=== PATIENT | male | born 1960 | race Caucasian/White ===

== ENCOUNTER 2024-07-18 13:02 | Outpatient (AMB) | payer MEDICARE, SELFPAY ==
--- NOTE | 2024-07-18 13:05 | MHC.OFFVIS ---
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 He has recently moved to [facility] from [facility]. He said he has known history of hyperlipidemia since in his 20s, was diagnose in the setting of his father having premature coronary artery disease events in his late 30s. Subsequently was managed with medication initially with Mevacor with subsequently developed rhabdomyolysis. He was then switch to an alternative therapy but over time was then treated with atorvastatin with which he had a very good result although subsequently developed again elevated CK and was switch to an alternative therapy. Most recently he was then started on PCSK9 inhibitor therapy due to his intolerance to statin therapy with a low-dose atorvastatin therapy. This again the muscle related toxicity in his atorvastatin was drop in switch to Livalo with again elevated CPK level leading to discontinuation statin therapy and has been labeled statin intolerant due to muscle toxicity. He was then started on ezetimibe therapy with most lost lipid panel with LDL of 139 mg/dL. Patient has been able to tolerate PCSK9 inhibitor therapy without issues. Patient says that he has had coronary calcium score in the past which suggested underlying presence of coronary atherosclerosis with calcium score reported one of the prior notes at 396 done in 2019. He underwent a recent stress echocardiogram which at high workload was within normal limits. He maintains high level of exercise and has no symptoms of exertional chest pain or shortness of breath. He has been diagnose prior with breast cancer as well as prostate cancer. He complains of diffuse tendinitis like symptoms. He maintains his diet appropriately. He also exercises appropriately. [facility] Family History Father CAD (coronary artery disease) of bypass graft S/P quadruple vessel bypass Heart attack Social History Alcohol intake: former Patient Tobacco Use Status: Former Tobacco user Review of Systems Const Denies chills, Denies fatigue, Denies fever(s), Denies frequent falls, Denies weakness, Denies weight gain and Denies weight loss ENT Denies dizziness Card Denies chest pain, Denies leg edema, Denies lightheadedness, Denies palpitations, Denies dyspnea, Denies dyspnea on exertion and Denies orthopnea Resp Denies cough, Denies dyspnea and Denies dyspnea on exertion GI Denies bloating and Denies change in bowel habits Musc Denies muscle weakness, Denies numbness and Denies tingling Neuro Denies dizziness, Denies frequent falls, Denies numbness, Denies tingling and Denies weakness Endo Denies fatigue and Denies palpitations Physical Exam Vital Signs: Last Vital Signs Pulse 70 07/18/24 13:07 BP 110/62 07/18/24 13:07 BMI result Body Mass Index 24.1 Const General: cooperative, comfortable, no acute distress, well developed, alert, awake and well groomed Nutritional Appearance: well nourished and thin Orientation/consciousness: patient oriented x3 Limitations: no limitations HEENT Head: Yes normocephalic and Yes atraumatic Neck Neck: Yes trachea midline, Yes supple and Yes no JVD Carotids: no bruits Resp Effort & Inspection: normal respiratory effort Auscultation: clear to auscultation bilaterally Cardio Jugular venous distension: no JVD Rate: regular rate Rhythm: regular rhythm Heart sounds: S1 normal heart sound present, S2 normal heart sound present, no click, no gallops, Murmur heart sound present systolic early and no rubs Skin General skin exam: no rashes or lesions noted Neuro General: patient oriented x3 and no focal motor deficits Extrem General: Yes no clubbing, cyanosis or edema Psych Appearance: grossly normal Office Procedures EKG Details: EKG shows normal sinus rhythm with normal EKG at 70 beats per minute 60027-[id number], Complete Assessment & Plan Assessment & Plan (1) CAD (coronary artery disease): Code(s): I25.10 - Atherosclerotic heart disease of [place] coronary artery without angina pectoris Category: Medical Plan: Presence of coronary atherosclerosis based on coronary calcium score with a score of 396 in the past with recent stress echocardiogram within normal limits suggestive of nonobstructive disease. He remains asymptomatic and has high functional state. Recommend to continue maintain activity level as well as lifestyle modification with dietary modifications before. He needs more intense lipid modification and agree that his management should be change. He had best results with statin therapy in combination with PCSK9 inhibitor therapy although developed muscle toxicity with statin therapy and multiple occasions and therefore statin therapy is contraindicated him in him. I have suggested him to increase his Repatha to 420 mg monthly injection and follow-up lipid panel along with CRP in 3 months time on that therapy along with ezetimibe. If this does not lead to adequate response will consider adding bempedoic acid to his regimen with close follow-up of CPK. Management of coronary atherosclerosis was discussed in details. Advised to continue aspirin therapy. Blood pressure is currently well optimized. Advised to call me with any new symptoms. Will follow up in the clinic otherwise in 1 year's time, sooner p.r.n.. Thank you for allowing me to partake in his care Orders: Orders Lipid Panel 4 Months E78.01 - Familial hypercholesterolemia, I25.10 - Atherosclerotic heart disease of [place] coronary artery without angina pectoris CRP High Sensitivity 4 Months E78.01 - Familial hypercholesterolemia Medications: New evolocumab (Repatha Pushtronex) 420 mg (3.5 mL) subcut .monthly 3.5 mL 6RF Coding Level of Care Code New Pt Level 4 (91036) Complex EM visit Add On G2211 Diagnoses CAD (coronary artery disease) I25.10 CPT Codes EKG - CPT: 35328-Xnlqpowfsltzecupf, Complete ([id number])
[2024-07-18 13:07] VITALS: BP 110/62; PULSE 70; BMI 24.1
== END 2024-07-18 14:11 | disposition home or self-care (01) ==
LOC: HO.HCS 13:02
PROVIDERS: Visit Provider Internal Medicine Cardiovascular Disease
DX: I25.10 Atherosclerotic heart disease of native coronary artery without angina pectoris (principal)
CPT/HCPCS: 93010; 99204; G2211

== ENCOUNTER → 2024-07-18 13:02 | Outpatient (BNVA) | payer MEDICARE, SELFPAY | PROVIDERS: Visit Provider Internal Medicine Cardiovascular Disease | DX: I25.10 Atherosclerotic heart disease of native coronary artery without angina pectoris (principal); E78.01 Familial hypercholesterolemia | CPT/HCPCS: 93005; 99202 ==

== ENCOUNTER 2024-08-14 15:42 | Outpatient (AMB) | payer MEDICARE, SELFPAY ==
--- NOTE | 2024-08-14 15:50 | A.OFFPC_ITS ---
Vital Signs 08/14/24 15:52 Height 5 ft 4.96 in Weight 152 lb 6 oz BMI 25.4 BP 120/72 Blood Pressure Location Rt brachial Position Sitting Pulse 76 Pulse Source Pulse Oximeter Temp 97.3 F Temp Source Temporal Artery Scan Pulse Oximetry (%) 97 Oxygen Delivery Method Room Air Intake Visit Reasons: establish care Intake Note: Patient is a new patient here to establish care for Hx of breast cancer, Melanoma, hx of prostate cancer, Basle cell carcinoma on right salgado, Hypercholesterolemia, hx of cervical stenosis. Transferring care from Dr Bryant ([facility]). Medical records have been requested and have not received. Turbine Technician Required: No Electronic Publications Specialist: Not Required per policy Accompanied by: Self / Same As Patient Allergies Jotrzso-QVA-YvP Reductase Inhibitor Adverse Reaction (Severe, Verified 08/14/24 16:38) Muscle cramps Medication List - Last Reconciled 08/14/24 by Suki Cordoba PA-C alirocumab (Praluent Pen) 300 mg (2 mL) subcut Q4W aspirin (Adult Low Dose Aspirin) 81 mg PO DAILY ezetimibe (Zetia) 10 mg PO DAILY loratadine (Claritin) 10 mg PO DAILY omeprazole 20 mg PO DAILY PRN Tobacco use date assessed: 08/14/24 Fall risk assessment: No Falls in past year Last assessed Fall Risk: 08/14/24 Dental Screening Dental Screen Date: 08/14/24 Did you have a dental visit in the last 12 months?: Yes Did you have a dental problem in the last 6 months where you did not have access to dental care?: No Was dental information given to patient?: Patient declined HPI establish care HPI Details 64-year-old male with past medical histo ry of coronary artery disease coming to the office for the 1st time. In review of the notes, patient was seen by Cardiology 06/2024 patient is asymptomatic recommended to maintain activity level. Patient is unable to take statins due to muscle toxicity recommended to increase her path at 24:20 monthly on follow up lipid panel with CRP in 3 months along with ezetimibe. Presenting for the establishment of primary care and coordination of ongoing cancer surveillance. He has a significant history of cancer including right- sided breast cancer diagnosed in 2011 at age 49, which led to a mastectomy and was BRCA negative. He also has a history of skin cancer, specifically basal cell carcinoma in and melanoma in 2019, both surgically excised. He was diagnosed with prostate cancer in late 2021, treated with HIFU, and is undergoing active surveillance through [facility] and plans for MRI in 12/2024. The patient has a hiatal hernia contributing to gastroesophageal reflux disease. He also reports a history of cervical spinal stenosis causing discomfort. There is a notable history of elevated CPK and rhabdomyolysis related to statin use, resulting in discontinuation of statins. colonoscopy: completed 10/2023 repeat in 5 years endoscopy: 08/2023 revealed hiatal hernia vaccines: shingles 2022, Tdap 2017, unsure of [facility]PS[facility] Medical History Prostate cancer Breast cancer in male History of basal cell carcinoma Surgical History Hx of prior ablation treatment History of melanoma excision History of mastectomy Hx of basal cell carcinoma excision Family History Father CAD (coronary artery disease) of bypass graft S/P quadruple vessel bypass Heart attack Social History Housing: Apartment Alcohol intake: former Patient Tobacco Use Status: Former Tobacco user e-Cigarette/Vaping Use: Never Used Second Hand Smoke Exposure: Yes service: No Current occupational status: retired Cognitive needs: No Hearing needs: No Vision needs: Yes (Glasses) Questionnaire PHQ-9 Over the last 2 weeks, how often have you been bothered by any of the following problems? 1. Little interest or pleasure in doing things: not at all 2. Feeling down, depressed, or hopeless: not at all 3. Trouble falling or staying asleep, or sleeping too much: not at all 4. Feeling tired or having little energy: not at all 5. Poor appetite or overeating: not at all 6. Feeling bad about yourself - or that you are a failure or have let yourself or your family down: not at all 7. Trouble concentrating on things, such as reading the newspaper or watching television: not at all 8. Moving or speaking so slowly that other people could have noticed. Or the opposite - being so fidgety or restless that you have been moving around a lot more than usual: not at all 9. Thoughts that you would be better off or of hurting yourself in some way: not at all Total score: 0 Depression Screening Interpretation: Negative Depression Screening Done: Yes 45392 - PHQ-9 Billing: Yes Source: Developed by Drs. John Vaughn, Jannette Small, Eric Esteves and colleagues, with an educational andrew from [employer]. Thrive Questionnaire Date Thrive assessed: 08/10/24 I am a: Patient What is your living situation today?: I have a steady place to live Within the past 12 months, did the food you bought not last and you didn't have the money to get more?: Never true Within the past 12 months, did you worry whether your food would run out before you got money to buy more?: Never true Do you have trouble paying for medicines?: No Do you have trouble getting transportation to medical appointments?: No Do you have trouble paying your heating and electricity bill?: No Do you have trouble taking care of your child, family member or friend?: No Do you have trouble with day-to-day activities such as bathing, preparing meals, shopping, managing finances, etc.?: No Are you currently unemployed and looking for a job?: No Are you interested in more education?: No Please select the resources that you would like help with: None Currently or been in a relationship where the following occur: No concerns reported THRIVE Score: 0 AUDIT C Alcohol Use Questionnaire (AUDIT-C) 1. How often do you have a drink containing alcohol?: Never Total Score: 0 DARYL-7 AMB Questionnaire DARYL-7 Date DARYL - 7 assessed: 08/14/24 Feeling nervous, anxious, or on edge: 1 = Several days Not being able to stop or control worryin = Not at all Worrying too much about different things: 1 = Several days Trouble relaxin = Not at all Being so restless that it is hard to sit still: 0 = Not at all Becoming easily annoyed or irritable: 1 = Several days Feeling afraid as if something awful might happen: 1 = Several days Total DARYL-7 score (0-4 normal; 5-9 mild; 10-14 moderate; 15-21 severe): 4 Source: Developed by Drs. John Vaughn, Jannette Small, Eric Esteves and colleagues, with an educational andrew from [employer]. DARYL-7 Assessment Billing DARYL-7 Assessment Tool: DARYL-7 Assessment 23531 Review of Systems Const Denies body aches, Denies chills, Denies fever(s), Denies headache(s) and Denies poor appetite Eyes Reports no additional complaints ENT Denies dysphagia, Denies dizziness, Denies headache(s) and Denies odynophagia Card Denies chest pain, Denies syncope, Denies edema, Denies irregular heart rhythm, Denies lightheadedness and Denies dyspnea Resp Denies cough and Denies dyspnea GI Denies abdominal pain, Denies constipation, Denies dysphagia, Denies diarrhea, Denies nausea, Denies odynophagia and Denies vomiting Reports no additional complaints Musc Reports no additional complaints and Denies abnormal gait Skin/Breast Reports system reviewed and no additional complaints, except as documented Neuro Denies abnormal gait, Denies dizziness, Denies syncope and Denies headache(s) Psych Reports no additional complaints Physical exam (Primary Care) Vital Signs: Last Vital Signs Temp 97.3 F 08/14/24 15:52 Pulse 76 08/14/24 15:52 BP 120/72 08/14/24 15:52 Pulse Ox 97 08/14/24 15:52 Oxygen Delivery Method Room Air 08/14/24 15:52 BMI result Body Mass Index 25.4 Tobacco/Smoking Status: Tobacco use Status Tobacco use date assessed 08/14/24 08/14/24 16:07 Patient Tobacco Use Status Former Tobacco user 08/14/24 16:07 e-Cigarette/Vaping Use Never Used 08/14/24 16:07 PHQ-9: PHQ-9 Score PHQ-9: Total score 0 08/14/24 16:22 Depression Screening Interpretation: Negative Thrive Assessment: Date of Thrive Assessment Date Thrive assessed 08/10/24 08/14/24 16:07 Currently or been in a relationship where the following occur: No concerns reported Const General: cooperative, healthy appearing, comfortable and no acute distress Orientation/consciousness: patient oriented x3 HENMT Head: Yes normocephalic Ears: hearing grossly normal bilaterally General nose exam: Normal external nose present Eyes General: appearance normal, both eyes and all related structures Conjunctivae: conjunctivae normal Neck Neck: Yes full ROM and Yes no lymphadenopathy Resp Effort & Inspection: normal respiratory effort Auscultation: clear to auscultation bilaterally, no crackles, no rales, no rhonchi and no wheezes Cardio Rate: regular rate Rhythm: regular rhythm Heart sounds: Murmur heart sound present Skin General skin exam: no rashes or lesions noted Neuro General: patient oriented x3 Gait exam (Neuro): Normal gait present Extrem General: Yes normal to inspection, Yes full ROM and No edema Psych Affect: normal affect Attitude: cooperative Insight: Good insight present (Psych) Judgement: Good judgement present (Psych) Coding Level of Care Code New Pt Level 4 (66349) Diagnoses Coronary artery disease involving [place] coronary artery of [place] heart without angina pectoris I25.10 Associated angina: without angina Coronary Disease-Associated Artery/Lesion type: [place] artery [place] vs. transplanted heart: [place] heart Prostate cancer C61 Familial hypercholesterolemia E78.01 Gastroesophageal reflux disease without esophagitis K21.9 Esophagitis presence: without esophagitis Hiatal hernia K44.9 Breast cancer in male C50.929 Cervical spinal stenosis M48.02 Bilateral shoulder pain M25.511; M25.512 Murmur R01.1 Additional Codes DARYL-7 Assessment Billing - DARYL-7 Assessment Tool: DARYL-7 Assessment 01502 ([id number]) PHQ-9 - 82239 - PHQ-9 Billing: Yes ([id number]) Assessment & Plan Assessment & Plan (1) CAD (coronary artery disease): Code(s): I25.10 - Atherosclerotic heart disease of [place] coronary artery without angina pectoris Category: Medical Qualifiers: Associated angina: without angina Coronary Disease-Associated Artery/Lesion type: [place] artery [place] vs. transplanted heart: [place] heart Qualified Code(s): I25.10 - Atherosclerotic heart disease of [place] coronary artery without angina pectoris Plan: Plan to work on control of blood sugars, cholesterol and blood pressure. He is currently following with cardiology for this concern as well. On aspirin daily, Zetia and Praluent (2) Prostate cancer: Comment: s/p high freq US 12/2023 following with [facility] Code(s): C61 - Malignant neoplasm of prostate Category: Medical Plan: Patient currently has a urologist through [facility] and has been undergoing treatment with HIFU. Plans for repeat MRI 12/2024. (3) Familial hypercholesterolemia: Code(s): E78.01 - Familial hypercholesterolemia Category: Medical Plan: Avoid foods that are high in cholesterol such as red meat, fried foods, eggs and baked goods. Triglyceride goal of less than 150 and LDL goal of less than 70. Continue on Zetia and Praluent. Patient can not tolerate statins (4) GERD (gastroesophageal reflux disease): Code(s): K21.9 - Gastro-esophageal reflux disease without esophagitis Category: Medical Qualifiers: Esophagitis presence: without esophagitis Qualified Code(s): K21.9 - Gastro-esophageal reflux disease without esophagitis Plan: Avoid trigger foods such as citrus, tomato products, soda, caffeine, spicy foods and other foods that may be irritating to your stomach. Avoid laying flat 3-4 hours after eating and elevate the head of the bed 30 degrees to prevent acid from moving into the esophagus. Continue on Omeprazole (5) Hiatal hernia: Code(s): K44.9 - Diaphragmatic hernia without obstruction or gangrene Category: Medical Plan: See above (6) Breast cancer in male: Comment: @ 49 years old 2010 Code(s): C50.929 - Malignant neoplasm of unspecified site of unspecified male breast Category: Medical Plan: Placed order for screening mammogram which should be done yearly for this patient. (7) Cervical spinal stenosis: Comment: with left radiculopathy Code(s): M48.02 - Spinal stenosis, cervical region Category: Medical Plan: Patient has a history of cervical spinal stenosis with left sided radiculopathy. Declining further workup or treatment at this time. (8) Bilateral shoulder pain: Comment: R shoulder MRI showed mild tears Code(s): M25.511 - Pain in right shoulder; M25.512 - Pain in left shoulder Category: Medical Plan: Patient having bilateral shoulder pain has been ongoing for many years. I did offer x-ray and evaluation today patient declining treatment at this time would like to defer to his next appointment. (9) Murmur: Code(s): R01.1 - Cardiac murmur, unspecified Category: Medical Plan: Patient having soft systolic murmur states he has had cardiac echo in the past w hich has been normal. Plan to continue to monitor at this time and obtain previous records. Plan This note was constructed using voice recognition software. While every effort has been made to ensure accuracy and photoengraving proofer, still areas may have been included sometimes these areas may affect the content or meeting of the given symptoms. Total time spent caring for the patient today was 30 minutes. This includes time spent before the visit reviewing the chart, time spent during the visit, and time spent after the visit and documentation. Patient was informed and verbally consented to the use of an ambient scribe for clinic note documentation during this visit. Orders: Orders MM tomosynthesis screening BI 08/14/24 C50.929 - Malignant neoplasm of unspecified site of unspecified male breast, Z12.31 - Encounter for screening ma mmogram for malignant neoplasm of breast Free T4 (Free Thyroxine) 08/14/24 Z00.00 - Encounter for general adult medical examination without abnormal findings Complete Blood Count Auto Diff 08/14/24 I25.10 - Atherosclerotic heart disease of [place] coronary artery without angina pectoris, Z00.00 - Encounter for general adult medical examination without abnormal findings Comprehensive Met. Panel 08/14/24 I25.10 - Atherosclerotic heart disease of [place] coronary artery without angina pectoris, Z00.00 - Encounter for general adult medical examination without abnormal findings Vitamin B12 and Folate 08/14/24 I25.10 - Atherosclerotic heart disease of [place] coronary artery without angina pectoris, Z00.00 - Encounter for general adult medical examination without abnormal findings Vitamin D 25-OH Total 08/14/24 I25.10 - Atherosclerotic heart disease of [place] coronary artery without angina pectoris, Z00.00 - Encounter for general adult medical examination without abnormal findings TSH reflex Free T4 08/14/24 Z00.00 - Encounter for general adult medical examination without abnormal findings
[2024-08-14 15:52] VITALS: BP 120/72; PULSE 76; TEMP 36.3; O2SAT 97; BMI 25.4
== END 2024-08-14 16:51 | disposition home or self-care (01) ==
DX: I25.10 Atherosclerotic heart disease of native coronary artery without angina pectoris (principal); C61 Malignant neoplasm of prostate; E78.01 Familial hypercholesterolemia; K21.9 Gastro-esophageal reflux disease without esophagitis; K44.9 Diaphragmatic hernia without obstruction or gangrene; C50.929 Malignant neoplasm of unspecified site of unspecified male breast; M48.02 Spinal stenosis, cervical region; M25.511 Pain in right shoulder; M25.512 Pain in left shoulder; R01.1 Cardiac murmur, unspecified

== ENCOUNTER → 2024-08-14 15:42 | Outpatient (BNVA) | payer MEDICARE, SELFPAY | DX: I25.10 Atherosclerotic heart disease of native coronary artery without angina pectoris (principal); C61 Malignant neoplasm of prostate; E78.01 Familial hypercholesterolemia; K21.9 Gastro-esophageal reflux disease without esophagitis; K44.9 Diaphragmatic hernia without obstruction or gangrene; C50.929 Malignant neoplasm of unspecified site of unspecified male breast; M48.02 Spinal stenosis, cervical region; M25.511 Pain in right shoulder; M25.512 Pain in left shoulder; R01.1 Cardiac murmur, unspecified | CPT/HCPCS: 96127; 99202 ==

== ENCOUNTER 2024-10-02 08:08 | Outpatient (REF) | payer MEDICARE, SELFPAY ==
--- NOTE | ~2024-10-02 | MM_ITS ---
EXAMINATION: MM SCREENING DIGITAL BREAST TOMOSYNTHESIS, LEFT CLINICAL INFORMATION: Screening. Asymptomatic. Right mastectomy. COMPARISON: Mammography: This study is compared with prior exams dating back to TECHNIQUE: Digital breast tomosynthesis is performed in both the craniocaudal and mediolateral oblique views along with computer-aided detection (CAD). Synthesized 2D images are generated from the tomosynthesis. FINDINGS: There are scattered areas of fibroglandular density (ACR BI-RADS breast composition Category b). There are no significant masses, abnormal calcifications, or other abnormalities. MM/MM tomosynthesis diagnostic LT IMPRESSION: No mammographic evidence of malignancy. ASSESSMENT: BI-RADS BI-RADS 1 - Negative RECOMMENDATION: Routine annual mammography screening. 1 year F/U This examination should not preclude the clinical evaluation of a suspicious palpable abnormality. This patient's information was entered into a reminder system with a target due date for their next mammogram. Electronically signed by: Val Kaba DO 10/10/2024 05:05 PM EDT
== END 2024-10-02 08:09 | disposition home or self-care (01) ==
LOC: HO.MAMMO 08:08
DX: Z85.3 Personal history of malignant neoplasm of breast (principal); Z90.11 Acquired absence of right breast and nipple
CPT/HCPCS: 77061; 77063; 77065; 77067

== ENCOUNTER → 2024-10-02 08:15 | Outpatient (BNV) | payer MEDICARE, SELFPAY | PROVIDERS: Visit Provider Internal Medicine | DX: Z12.31 Encounter for screening mammogram for malignant neoplasm of breast (principal) | CPT/HCPCS: 77063; 77067 ==

== ENCOUNTER 2024-10-07 08:26 | Outpatient (REF) | payer MEDICARE, SELFPAY ==
[2024-10-11 19:23] LABS: PSA, Ultra Sensitive 0.53 ng/mL
== END 2024-10-07 08:27 | disposition home or self-care (01) ==
LOC: HO.LAB 08:26
PROVIDERS: Visit Provider Internal Medicine Cardiovascular Disease
DX: Z00.00 Encounter for general adult medical examination without abnormal findings (principal); Z12.5 Encounter for screening for malignant neoplasm of prostate; C61 Malignant neoplasm of prostate
CPT/HCPCS: 36415; 84153

== ENCOUNTER 2024-11-11 07:17 | Outpatient (REF) | payer MEDICARE, SELFPAY ==
[2024-11-11 07:32] LABS: MANUAL DIFF FLAG NO
[2024-11-11 07:49] LABS: Hematocrit 43.3 % (42.0-52.0); Hemoglobin 14.3 g/dl (14.0-18.0); Imm Gran Abs Auto 0.01 X10*3/uL (0.00-0.03); Imm Gran Pct Auto 0.2 % (0.0-0.4); Lymphocytes Absolute Auto 1.8 X10*3/uL (1.2-4.9); Mean Corpuscular HGB Conc 33.0 g/dl (31.0-36.0); Mean Corpuscular Hemoglobin 30.4 pg (27.0-33.0); Mean Corpuscular Volume 92.1 fL (80.0-98.0); NRBC Abs Auto 0.000 X10*3/uL (0.0-0.012); NRBC Pct Auto 0.0 /100WBC (0.0-0.2); Platelet Count 170 X10*3/uL (160-400); Red Blood Count 4.70 X10*6/uL (4.60-5.80); White Blood Count 4.6 X10*3/uL (4.8-10.8)
[2024-11-11 08:27] LABS: Alanine Aminotransferase 24 U/L (0-40); Albumin Level 4.1 g/dL (3.5-5.0); Alkaline Phosphatase 51 U/L (39-117); Anion Gap 15 (12-20); Aspartate Amino Transferase 32 U/L (5-37); Blood Urea Nitrogen 15 mg/dL (9-16); Calcium 9.2 mg/dL (8.4-10.2); Carbon Dioxide 29 mmol/L (22-29); Chloride 102 mmol/L (96-108); Cholesterol 202 mg/dL (<200); Estimated Glomerular Filt Rate > 60; HDL Cholesterol 52 mg/dL (>40); Potassium 4.7 mmol/L (3.3-5.1); Sodium 141 mmol/L (135-145); Total Protein 6.6 g/dL (6.5-8.0); Triglycerides 66 mg/dL (<150)
[2024-11-11 08:49] LABS: Free T4 (Free Thyroxine) 0.93 ng/dL (0.71-1.85)
[2024-11-11 08:52] LABS: Folate 6.6 ng/mL (> or = 4.0); Vitamin B12 270 pg/mL (200-900)
== END 2024-11-11 07:18 | disposition home or self-care (01) ==
LOC: HO.LAB 07:17
PROVIDERS: Absent Provider Internal Medicine Cardiovascular Disease; PCP Internal Medicine
DX: Z00.00 Encounter for general adult medical examination without abnormal findings (principal); I25.10 Atherosclerotic heart disease of native coronary artery without angina pectoris; E78.01 Familial hypercholesterolemia
CPT/HCPCS: 36415; 80053; 80061; 82306; 82607; 82746; 84439; 84443; 85025; 86141

== ENCOUNTER 2024-11-14 13:45 | Outpatient (AMB) | payer MEDICARE, SELFPAY ==
--- NOTE | 2024-11-14 13:49 | A.OFFPC_ITS ---
Vital Signs 11/14/24 13:50 Height 5 ft 4.96 in Weight 151 lb 8 oz BMI 25.2 BP 128/64 Blood Pressure Location Lt brachial Position Sitting Pulse 65 Pulse Source Pulse Oximeter Pulse Oximetry (%) 98 Oxygen Delivery Method Room Air Intake Visit Reasons: annual exam Slag Skimmer Required: No Accompanied by: Self / Same As Patient Allergies Fngdanq-ZYK-IlR Reductase Inhibitor Adverse Reaction (Severe, Verified 11/14/24 14:14) Muscle cramps Medication List - Last Reconciled 11/14/24 by Suki Cordoba PA-C alirocumab (Praluent Pen) 300 mg (2 mL) subcut Q4W aspirin (Adult Low Dose Aspirin) 81 mg PO DAILY ezetimibe (Zetia) 10 mg PO DAILY loratadine (Claritin) 10 mg PO DAILY omeprazole 20 mg PO DAILY PRN Tobacco use date assessed: 11/14/24 Fall risk assessment: No Falls in past year Last assessed Fall Risk: 11/14/24 Dental Screening Dental Screen Date: 11/14/24 Did you have a dental visit in the last 12 months?: Yes Did you have a dental problem in the last 6 months where you did not have access to dental care?: No Was dental information given to patient?: Patient has dentist HPI annual exam HPI Details 64-year-old male with past medical histo ry of coronary artery disease, GERD, breast cancer, hyperlipidemia, prostate cancer and cervical spinal stenosis last seen 07/2024 coming in for annual exam. Presenting for an annual exam and management of chronic conditions. The patient reports a history of sciatica, with episodes occurring two to three times a year. The most recent episode was triggered by fatigue and prolonged sitting, leading to severe pain radiating from the buttock. He manages the condition with stretching and occasional use of muscle relaxants, although he finds them difficult to tolerate. The patient experiences GERD symptoms, particularly when consuming iced coffee. He manages symptoms with omeprazole as needed and avoids caffeine. The patient has a history of coronary artery disease, managed with medication. He is under the care of a svp monetization and is currently on a monoclonal antibody for hyperlipidemia. The patient has been switched from Repatha to Praluent due to inadequate response. His LDL cholesterol remains elevated, and a new medication, Nexletol, is being considered. The patient repo rts chronic shoulder pain, with limited range of motion and discomfort on certain movements. He has a history of shoulder dislocation over 30 years ago. An x-ray is planned to assess the current condition. PSA: 09/2024 mammogram: 09/2024 continue annually colonoscopy: completed 10/2023 repeat in 5 years endoscopy: 08/2023 revealed hiatal hernia vaccines: shingles 2022, Tdap 2017, unsure of PPSV PFSH Medical History Prostate cancer Breast cancer in male History of basal cell carcinoma Surgical History Hx of prior ablation treatment History of melanoma excision History of mastectomy Hx of basal cell carcinoma excision Family History Father CAD (coronary artery disease) of bypass graft S/P quadruple vessel bypass Heart attack Social History Housing: Apartment Alcohol intake: former Patient Tobacco Use Status: Former Tobacco user e-Cigarette/Vaping Use: Never Used Second Hand Smoke Exposure: Yes service: No Current occupational status: retired Cognitive needs: No Hearing needs: No Vision needs: Yes (Glasses) Questionnaire Thrive Questionnaire Date Thrive assessed: 11/14/24 I am a: Patient What is your living situation today?: I have a steady place to live Within the past 12 months, did the food you bought not last and you didn't have the money to get more?: Never true Within the past 12 months, did you worry whether your food would run out before you got money to buy more?: Never true Do you have trouble paying for medicines?: No Do you have trouble getting transportation to medical appointments?: No Do you have trouble paying your heating and electricity bill?: No Do you have trouble taking care of your child, family member or friend?: No Do you have trouble with day-to-day activities such as bathing, preparing meals, shopping, managing finances, etc.?: No Are you currently unemployed and looking for a job?: No Are you interested in more education?: No Please select the resources that you would like help with: None Currently or been in a relationship where the following occur: No concerns reported THRIVE Score: 0 AUDIT C Alcohol Use Questionnaire (AUDIT-C) 3. How often do you have six or more drinks on one occasion?: Never Total Score: 0 DARYL-7 AMB Questionnaire DARYL-7 Date DARYL - 7 assessed: 11/14/24 Source: Developed by Drs. John Vaughn, Jannette Small, Eric Esteves and colleagues, with an educational andrew from [employer]. Review of Systems Const Denies body aches, Denies fatigue, Denies fever(s), Denies frequent falls and Denies weakness Eyes Reports no additional complaints, Denies change in vision and Reports requires corrective lenses ENT Denies dysphagia, Denies dizziness, Denies facial pain and Denies odynophagia Card Denies chest pain, Denies syncope, Denies irregular heart rhythm, Denies leg edema, Denies lightheadedness and Denies dyspnea Resp Denies cough and Denies dyspnea GI Denies abdominal pain, Denies dysphagia, Denies dyspepsia, Denies diarrhea, Denies nausea, Denies odynophagia and Denies vomiting Denies urinary frequency, Denies urinary hesitancy and Denies urinary urgency Musc Details: right buttock pain Denies back pain and Denies myalgias Skin/Breast Reports system reviewed and no additional complaints, except as documented Neuro Denies dizziness, Denies syncope, Denies frequent falls and Denies weakness Psych Reports no additional complaints Endo Denies fatigue Physical exam (Primary Care) Vital Signs: Last Vital Signs Pulse 65 11/14/24 13:50 BP 128/64 11/14/24 13:50 Pulse Ox 98 11/14/24 13:50 Oxygen Delivery Method Room Air 11/14/24 13:50 BMI result Body Mass Index 25.2 Tobacco/Smoking Status: Tobacco use Status Tobacco use date assessed 11/14/24 11/14/24 13:54 Patient Tobacco Use Status Former Tobacco user 11/14/24 13:54 e-Cigarette/Vaping Use Never Used 11/14/24 13:54 Thrive Assessment: Date of Thrive Assessment Date Thrive assessed 11/14/24 11/14/24 13:54 Currently or been in a relationship where the following occur: No concerns reported Const General: cooperative, healthy appearing, comfortable and no acute distress Orientation/consciousness: patient oriented x3 [facility] Head: Yes normocephalic Ears: hearing grossly normal bilaterally, external ears normal, TM's normal bilaterally and EAC's normal General nose exam: Normal external nose present Face and sinus: Yes normal facial exam and Yes sinuses nontender Mouth: Normal oral and palatal mucosa present and tongue normal Throat: Yes posterior oropharynx normal Eyes General: appearance normal, both eyes and all related structures Conjunctivae: conjunctivae normal Pupils: Equal, round and reactive pupils present EOM: EOMs intact bilaterally and No Nystagmus present Neck Neck: Yes normal visual inspection, Yes full ROM and Yes no lymphadenopathy Chest Chest palpation & inspection: normal inspection of the chest Resp Effort & Inspection: normal respiratory effort Auscultation: clear to auscultation bilaterally, no crackles, no rales, no rhonchi, no wheezes and breath sounds present Cardio Rate: regular rate Rhythm: regular rhythm Peripheral pulses: radial pulses present and dorsalis pedis present GI Inspection: Yes normal to inspection and No Abdominal wall edema Palpation (GI): Soft to palpation, not firm and nontender Auscultation: normal bowel sounds Rectal Exam - Male: Yes deferred General: Yes no CVA tenderness Back/Spine/Pelvis Other: no tenderness to low back and neg SLR pablo Back: no CVA tenderness Skin General skin exam: no rashes or lesions noted Neuro General: patient oriented x3 Cranial nerves: Yes Equal, round and reactive pupils present, Yes Midline tongue present, Yes Ability to bilaterally elevate shoulders present and No Nystagmus present Gait exam (Neuro): Normal gait present Extrem Other: No tenderness to palpation over left shoulder. Pain with internal and external rotation of the left shoulder and limited range of motion with extension. General: Yes normal to inspection, Yes full ROM, No no pedal edema and No edema Psych Speech and movement: Normal speech and movement present Affect: normal affect Insight: Good insight present (Psych) Judgement: Good judgement present (Psych) Coding Level of Care Code Est Pt Prev Care >65y(92860) Diagnoses Annual physical exam Z00.00 Coronary artery disease involving [place] coronary artery of [place] heart without angina pectoris I25.10 Associated angina: without angina Coronary Disease-Associated Artery/Lesion type: [place] artery [place] vs. transplanted heart: [place] heart Familial hypercholesterolemia E78.01 Gastroesophageal reflux disease without esophagitis K21.9 Esophagitis presence: without esophagitis Hiatal hernia K44.9 Breast cancer in male C50.929 Prostate cancer C61 Bilateral shoulder pain M25.511; M25.512 Melanoma C43.9 Low back strain S39.012A Assessment & Plan Assessment & Plan (1) Annual physical exam: Code(s): Z00.00 - Encounter for general adult medical examination without abnormal findings Category: Medical Plan: Patient is up-to-date on all recommended routine screenings and vaccinations for his age. Blood work is up-to-date and has been reviewed with the patient today. Healthy diet and regular exercise is encouraged. (2) CAD (coronary artery disease): Code(s): I25.10 - Atherosclerotic heart disease of [place] coronary artery without angina pectoris Category: Medical Qualifiers: Associated angina: without angina Coronary Disease-Associated Artery/Lesion type: [place] artery [place] vs. transplanted heart: [place] heart Qualified Code(s): I25.10 - Atherosclerotic heart disease of [place] coronary artery without angina pectoris Plan: Patient is currently following with Dr. Mcneal for management of coronary artery disease. He is on Zetia 10 mg along with Praluent and was recently started on bempedoic acid as well for management of his cholesterol. He continues on low- dose aspirin. Blood sugars and blood pressure are well managed at this time without medical management (3) Familial hypercholesterolemia: Code(s): E78.01 - Familial hypercholesterolemia Category: Medical Plan: Avoid foods that are high in cholesterol such as red meat, fried foods, eggs and baked goods. Triglyceride goal of less than 150 and LDL goal of less than 70. Continue on bempedoic acid, Praluent and Zetia. (4) GERD (gastroesophageal reflux disease): Code(s): K21.9 - Gastro-esophageal reflux disease without esophagitis Category: Medical Qualifiers: Esophagitis presence: without esophagitis Qualified Code(s): K21.9 - Gastro-esophageal reflux disease without esophagitis Plan: Avoid trigger foods such as citrus, tomato products, soda, caffeine, spicy foods and other foods that may be irritating to your stomach. Avoid laying flat 3-4 hours after eating and elevate the head of the bed 30 degrees to prevent acid from moving into the esophagus. Continue on Omeprazole (5) Hiatal hernia: Code(s): K44.9 - Diaphragmatic hernia without obstruction or gangrene Category: Medical Plan: see above (6) Breast cancer in male: Comment: @ 49 years old 2010 Code(s): C50.929 - Malignant neoplasm of unspecified site of unspecified male breast Category: Medical Plan: Continue to monitor with yearly mammograms (7) Prostate cancer: Comment: s/p high freq US 12/2023 following with [facility] Code(s): C61 - Malignant neoplasm of prostate Category: Medical Plan: Continue to monitor PSA and continue with [facility] urology at this time. (8) Bilateral shoulder pain: Comment: R shoulder MRI showed mild tears Code(s): M25.511 - Pain in right shoulder; M25.512 - Pain in left shoulder Category: Medical Plan: Shoulder pain primarily on the left side now and hx of dislocation. Plan to obtain XR for further evaluation. (9) Melanoma: Comment: 2019 stage 0 Code(s): C43.9 - Malignant melanoma of skin, unspecified Category: Medical Plan: History of melanoma and referral was placed to Dermatology today (10) Low back strain: Code(s): S39.012A - Strain of muscle, fascia and tendon of lower back, initial encounter Category: Medical Plan: Patient has a history of low back strain typically 2-3 times per year exacerbated by prolonged sitting. Most recently having right-sided low back and right buttock pain after a prolonged car ride. He has been using cyclobenzaprine as needed with good relief and prescription was sent today. He continues with stretching as well as Tylenol and pain has been significantly improving. He will follow up as needed for this Plan The patient will continue management of sciatica with stretching exercises and will be prescribed a new muscle relaxant to replace the outdated medication. For GERD, the patient is advised to continue using omeprazole as needed and to avoid caffeine to manage symptoms effectively. For coronary artery disease and hyperlipidemia, the patient will continue with the current monoclonal antibody therapy and will be started on Nexletol to better manage LDL cholesterol levels. Regular follow-up with the svp monetization is recommended to monitor progress. An x-ray of the shoulder is planned to evaluate the cause of pain and limited range of motion. Depending on the results, further management may include physical therapy or referral to orthopedics if necessary. The patient is encouraged to follow up with dermatology for regular skin checks due to a history of melanoma. Additionally, a referral to ophthalmology is suggested for routine eye care. This note was constructed using voice recognition software. While every effort has been made to ensure accuracy and full stack python developer, still areas may have been included sometimes these areas may affect the content or meeting of the given symptoms. Total time spent caring for the patient today was 30 minutes. This includes time spent before the visit reviewing the chart, time spent during the visit, and time spent after the visit and documentation. Patient was informed and verbally consented to the use of an ambient scribe for clinic note documentation during this visit. Orders: Orders XR shoulder LT min 2V 11/14/24 M25.511 - Pain in right shoulder, M25.512 - Pain in left shoulder Referrals Dermatology Referral C43.9 - Malignant melanoma of skin, unspecified Ophthalmology Referral Z97.3 - Presence of spectacles and contact lenses Medications: New cyclobenzaprine 10 mg PO BEDTIME 30 tabs 0RF
[2024-11-14 13:50] VITALS: BP 128/64; PULSE 65; O2SAT 98; BMI 25.2
--- OUTSIDE RECORDS SUMMARY | 2024-11-14 15:02 | XMS_ITS | Clinical Summary ---
Author Organization [facility] Address [address] [place] [phone] Phone Care Team Providers Care Soil Sort Worker Name Role Phone Pcp, Unknown Primary Care Provider Unavailabl e Social History Tobacco Use Types Packs/Day Years Used Date Smoking Tobacco: Never Assessed Education Answer Date Recorded Are you interested in more education? Not on yonas e 06/12/2024 Are you concerned about learning? Not on file 06/12/2024 No 06/12/2024 No 06/12/2024 Digital Access Answer Date Recorded No 06/12/2024 No 06/12/2024 Reliable internet access at home? Not on file 06/12/2024 Device with a working camera? Not on file Sex and Gender Information Value Date Recorded Sex Assigned at Not on file Legal Sex Male 11:36 AM EDT Gender Identity Not on file Sexual Orientation Not on file Plan of Treatment Upcoming Encounters Date Type Department Care Team ([facility] st Contact Info) Description 03/05/2025 11:00 AM EST Office Visit [facility] Medicine [address] [place] [address] Whitney Albrecht MD [address] [facility], [address] [place] [address] [email or web address] Health Maintenance Due Date Last Done Comments Adult Td,Tdap Booster 1958 LIPID PANEL 1958 DEPRESSION SCREENING 1970 SMOKING Hx and SMOKELESS TOB ACCO SCREENING 07/12/1971 HEPATITIS C SCREENING 1976 COLOGUARD 07/12/2003 COLONOSCOPY 07/12/2003 COLORECTAL CANCER SCREENING 07/12/2003 FIT TEST 07/12/2003 FOBT 07/12/2003 SIGMOIDOSCOPY 07/12/2003 VIRTUAL COLONOSCOPY 07/12/2003 PNEUMOCOCCAL VACCINES (50+ y ears) (1 of 1 - PCV) 2008 ZOSTER VACCINES (1 of 2) 2008 COVID-19 VACCINE (1 - 2023-2 5 season) 2023 RSV VACCINE (1 - 1-dose 75+ series) 2033 HEPATITIS A VACCINES Aged Out No long er eligible based on patient's age to complete this topic HIB VACCINES Aged Out No longer eligi ble based on patient's age to complete this topic MENINGOCOCCAL VACCINES (ACWY) Aged Out No longer eligible based on patient's age to complete this topic MENINGOCOCCAL VACCINES (B) Aged Out N o longer eligible based on patient's age to complete this topic Medical Devices Not on file Insurance MEDICARE PART A & B [facility] MEDICARE SUPPLEMENT MEDICARE PART A & B MEDICARE SUPPLEMENT MEDICARE PART A & B [id number] [place] [address] MEDICARE SUPPLEMENT MEDICARE PART A & B [facility] MEDICARE SUPPLEMENT MEDICARE PART A & B [facility] MEDICARE SUPPLEMENT MEDICARE PART A & B [facility] MEDICARE SUPPLEMENT Care Teams Soil Sort Worker Relationship Specialty Start Date End Date Pcp, Unknown PCP - General 06/12/24 Additional Source Comments The information contained in this document represents components of the legal health record. It is not the complete legal health record.[facility]
== END 2024-11-14 14:57 | disposition home or self-care (01) ==
LOC: HO.HMCH 13:46
DX: M25.511 Pain in right shoulder (principal); M25.512 Pain in left shoulder; C50.929 Malignant neoplasm of unspecified site of unspecified male breast; C61 Malignant neoplasm of prostate; C43.9 Malignant melanoma of skin, unspecified; I25.10 Atherosclerotic heart disease of native coronary artery without angina pectoris; E78.01 Familial hypercholesterolemia; K21.9 Gastro-esophageal reflux disease without esophagitis; K44.9 Diaphragmatic hernia without obstruction or gangrene; S39.012A Strain of muscle, fascia and tendon of lower back, initial encounter

== ENCOUNTER → 2024-11-14 13:45 | Outpatient (BNVA) | payer MEDICARE, SELFPAY | DX: Z00.00 Encounter for general adult medical examination without abnormal findings (principal); I25.10 Atherosclerotic heart disease of native coronary artery without angina pectoris; E78.01 Familial hypercholesterolemia; K21.9 Gastro-esophageal reflux disease without esophagitis; K44.9 Diaphragmatic hernia without obstruction or gangrene; C61 Malignant neoplasm of prostate; C50.929 Malignant neoplasm of unspecified site of unspecified male breast; M25.511 Pain in right shoulder; M25.512 Pain in left shoulder; C43.9 Malignant melanoma of skin, unspecified; S39.012D Strain of muscle, fascia and tendon of lower back, subsequent encounter | CPT/HCPCS: 99212 ==

== ENCOUNTER 2025-01-12 07:23 | Outpatient (REF) | payer MEDICARE, SELFPAY ==
--- OUTSIDE RECORDS SUMMARY | 2025-01-12 07:26 | XMS_ITS | Clinical Summary ---
Author Organization [facility] Address [address] [place] [address] Phone Care Team Providers Care Head Athletic Trainer/Strength Coach Name Role Phone Pcp, Unknown Primary Care [...] Upcoming Encounters Date Type Department Care Team ([facility] st Contact Info) Description 03/05/2025 11:00 AM EST Office Visit [facility] Medicine [address] [place] [address] Whitney Albrecht MD [address] [facility], [address] [place] [address] [email or web address] Health Maintenance Due Date Last Done Comments [...] 2008 ZOSTER VACCINES (1 of 2) 2008 INFLUENZA VACCINE (#1) 2024 COVID-19 VACCINE (1 - 2024-2 6 season) 2024 RSV VACCINE (1 - 1-dose 75+ series) [...] file Insurance MEDICARE PART A & B [facility] MEDICARE SUPPLEMENT MEDICARE PART A & B MEDICARE SUPPLEMENT MEDICARE PART A & B Member Subscriber Plan / Payer (Ef fective 2023-Present) Name:Reji Weinberg Member ID:[id number] Relation to Subscriber:Self Name:Reji Weinberg Subscriber ID:[id number] Payer ID:[id number] Group ID:Not on file Type:Medicare Address: [employer] [address] [place] [id number] [place] [address] MEDICARE SUPPLEMENT MEDICARE PART A & B [facility] MEDICARE SUPPLEMENT MEDICARE PART A & B [facility] MEDICARE SUPPLEMENT MEDICARE PART A & B [facility] MEDICARE SUPPLEMENT Care Teams Head Athletic Trainer/Strength Coach Relationship Specialty Start Date End Date Pcp, Unknown PCP - General 06/12/24 Additional Source Comments The information contained in this document represents components of the legal health record. It is not the complete legal health record.[facility]
[2025-01-12 08:48] LABS: Cholesterol 159 mg/dL (<200); HDL Cholesterol 57 mg/dL (>40); Triglycerides 68 mg/dL (<150)
== END 2025-01-12 07:24 | disposition home or self-care (01) ==
LOC: HO.LAB 07:23
PROVIDERS: Visit Provider Internal Medicine Cardiovascular Disease
DX: I25.10 Atherosclerotic heart disease of native coronary artery without angina pectoris (principal); E78.019 Familial hypercholesterolemia, unspecified
CPT/HCPCS: 36415; 80061; 82550

== ENCOUNTER 2025-03-09 09:04 | Outpatient (REF) | payer MEDICARE, SELFPAY ==
--- NOTE | ~2025-03-09 | XR_ITS ---
EXAMINATION: XR SHOULDER, LEFT CLINICAL INFORMATION: M25.511 - Pain in left shoulder COMPARISON: None available. TECHNIQUE: AP external rotation, Grashey, scapular Y, and axillary views of the left shoulder. FINDINGS: There is sclerosis along the articular surface of the glenoid and humeral head with subchondral cyst formation. There is joint space narrowing of the glenohumeral joint. Marginal osteophyte formation in the inferior humeral head. No acute fracture or dislocation. No lytic or blastic lesions. No soft tissue calcifications. XR/XR shoulder LT min 2V IMPRESSION: Osteoarthrosis/osteoarthritis, left glenohumeral joint. Electronically signed by: Bassem Ulloa MD 03/09/2025 09:29 AM RAJ
== END 2025-03-09 09:05 | disposition home or self-care (01) ==
LOC: HO.XRAY 09:04
DX: M25.512 Pain in left shoulder (principal)
CPT/HCPCS: 73030

== ENCOUNTER → 2025-03-09 09:09 | Outpatient (BNV) | payer MEDICARE, SELFPAY | PROVIDERS: Visit Provider Radiology Diagnostic Radiology | DX: M19.012 Primary osteoarthritis, left shoulder (principal) | CPT/HCPCS: 73030 ==

== ENCOUNTER 2025-03-17 07:40 | Outpatient (REF) | payer MEDICARE, SELFPAY ==
[2025-03-17 08:34] LABS: Alanine Aminotransferase 34 U/L (0-40); Albumin Level 4.1 g/dL (3.5-5.0); Alkaline Phosphatase 46 U/L (39-117); Aspartate Amino Transferase 37 U/L (5-37); Cholesterol 143 mg/dL (<200); HDL Cholesterol 51 mg/dL (>40); Total Protein 6.5 g/dL (6.5-8.0); Triglycerides 69 mg/dL (<150)
== END 2025-03-17 07:41 | disposition home or self-care (01) ==
LOC: HO.LAB 07:40
PROVIDERS: Visit Provider Internal Medicine Cardiovascular Disease
DX: I25.10 Atherosclerotic heart disease of native coronary artery without angina pectoris (principal)
CPT/HCPCS: 36415; 80061; 80076